=== PATIENT | female | born 1990 | race Caucasian/White ===

== ENCOUNTER 2017-01-12 13:15 | Observation (INO) ==
[2017-01-12] MEDS ORDERED: IOPAMIDOL 100 ML BOTTLE IV ONE (13:16)
--- NOTE | 2017-01-12 13:41 | Emergency Department Note ---
Abdominal Pain HPI - General Chief Complaint: Abdominal Pain Stated Complaint: abdominal pain Time Seen by Provider: 01/12/17 13:27 Source: patient Mode of arrival: ambulatory Limitations: no limitations - History of Present Illness HPI Narrative: Patient has had abdominal pain for last 2 days. It was initially between the umbilicus and epigastrium but now seems to be localized in the right lower quadrant. Also felt slightly in the back. She did have some nausea and vomiting yesterday. Also some fever. - Related Data Home Medications Medication Instructions Recorded Confirmed No Known Home Meds [No Known Home 01/12/17 01/12/17 Meds] Allergies Allergy/AdvReac Type Severity Reaction Status Date / Time No Known Drug Allergies Allergy Verified 01/12/17 13:18 Review of Systems Constitutional: Reports: fever Gastrointestinal: Reports: abdominal pain, nausea, vomiting Genitourinary: Denies: urgency Musculoskeletal: Reports: back pain Abdominal Pain PMH - Past Medical History Medical history: Reports: no medical history - Social History Smoking status: Never smoker Physical Exam Limitations: no limitations General appearance: alert Head: atraumatic Eye: Present: normal appearance ENT: normal exam Neck: Present: normal inspection Chest: Present: normal inspection Respiratory: Present: normal lung sounds bilaterally Cardiovascular: Present: regular rate, normal rhythm, normal heart sounds Abdominal: Present: soft, tenderness, guarding. Absent: distention, rebound, rigidity Abdominal tenderness: Present: RLQ, mild Neurological: Present: alert Psychiatric: Present: normal affect, normal mood Skin: Present: warm, dry, intact Course Vital Signs Temperature 98.0 F 01/12/17 13:15 Pulse Rate 86 01/12/17 13:15 Respiratory Rate 14 01/12/17 13:15 Blood Pressure 144/85 01/12/17 13:15 Pulse Oximetry (%) 100 01/12/17 13:15 Temperature 98.0 F 01/12/17 13:15 Pulse Rate 86 01/12/17 13:15 Respiratory Rate 14 01/12/17 13:15 Blood Pressure 144/85 01/12/17 13:15 Pulse Oximetry (%) 100 01/12/17 13:15 Abdominal Pain - MDM Narrative Medical decision making narrative: Patient has unruptured appendicitis and a 5.9 cm right ovarian cyst. Discuss case with Dr. Velazquez and the patient will be admitted to the hospital for appendicitis - Lab Data Lab results reviewed: Yes I reviewed the patient's lab results. Result diagrams: 01/12/17 13:38 01/12/17 13:38 Lab Results 01/12/17 01/12/17 01/12/17 Range/Units 13:38 13:38 13:52 WBC 7.4 (4.5-11.0) K/mcL RBC 5.01 (4.00-5.20) M/mcL Hgb 15.2 H (12.0-15.0) g/dL Hct 45.2 (36.0-48.0) % MCV 90.2 (80.0-100.0) fL MCH 30.3 (26.0-34.0) pg MCHC 33.5 (31.0-36.0) g/dL RDW 12.4 (11.5-14.5) % Plt Count 151 (140-440) K/mcL MPV 11.5 H (7.4-10.4) fL Gran % 61.1 (38.0-78.0) % Lymph % (Auto) 26.8 (15.5-49.0) % [place] % (Auto) 10.7 (1.0-12.0) % Eos % (Auto) 1.1 (0.0-7.0) % Baso % (Auto) 0.3 (0.0-2.0) % Gran # 4.5 (1.8-8.0) K/mcL Lymph # (Auto) 2.0 (1.5-4.8) K/mcL [place] # (Auto) 0.8 (0.1-0.9) K/mcL Eos # (Auto) 0.1 (0.0-0.7) K/mcL Baso # (Auto) 0 (0.0-0.3) K/mcL Sodium 140 (133-145) mmol/L Potassium 4.0 (3.3-5.1) mmol/L Chloride 102 (96-108) mmol/L Carbon Dioxide 23 (22-30) mmol/L Anion Gap 15.0 (8-16) BUN 12 (6-20) mg/dl Creatinine 0.9 (0.6-1.1) mg/dl GFR Calculation 88 Glucose 86 (70-105) mg/dL Calcium 9.7 (8.6-10.4) mg/dl Total Bilirubin 0.6 (0.0-1.0) mg/dL AST 14 (0-37) U/l ALT 10 (0-40) U/l Alkaline Phosphatase 52 (39-117) U/L Total Protein 8.0 (5.9-8.4) gm/dL Albumin 4.7 (3.2-5.2) gm/dL Globulin 3.3 (2.2-3.7) gm/dL Albumin/Globulin Ratio 1.4 (1.0-2.3) Lipase 12 (7-60) U/L Urine Color Yellow Urine Appearance Cloudy Urine pH 5.0 (5.0-9.0) Ur Specific [place] 1.028 (1.000-1.035) Urine Protein 30 A (NEG) mg/dL Urine Glucose (UA) Negative (NEG) mg/dL Urine Ketones 20 A (NEG) mg/dL Urine Occult Blood 0.2 A (<0.03) mg/dL Urine Nitrate Neg (NEG) Urine Bilirubin Neg (NEG) mg/dL Urine Urobilinogen Neg (NEG) mg/dL Ur Leukocyte Esterase 500 A (NEG) /uL Urine RBC 5 H (0-1) /hpf Urine WBC 140 H (0-4) /hpf Ur Squamous Epith Cells 15 H (0-4) /hpf Urine Bacteria 0 (0) /hpf Urine Mucus Many A (0) /hpf Ur Culture Indicated? No - Radiology Data Radiology results reviewed: Yes I reviewed the patient's radiology results. Disposition Pt seen by DRIVER GUIDE/PA only: No Clinical Impression: Acute appendicitis, Ovarian cyst Disposition: Xfer As Outpt/Obs ([facility]) Condition: Good Time of Disposition: 15:22
[2017-01-12] MEDS ORDERED: 0.9 % SODIUM CHLORIDE 1,000 ML IV ONE (13:50)
[2017-01-12 14:03] LABS: Basophils # (Auto) 0 K/mcL (0.0-0.3); Basophils % (Auto) 0.3 % (0.0-2.0); Eosinophils # (Auto) 0.1 K/mcL (0.0-0.7); Eosinophils % (Auto) 1.1 % (0.0-7.0); Granulocytes % (Auto) 61.1 % (38.0-78.0); Lymphocytes % (Auto) 26.8 % (15.5-49.0); Mean Cell Volume 90.2 fL (80.0-100.0); Mean Corpuscular HGB Conc 33.5 g/dL (31.0-36.0); Mean Corpuscular Hemoglobin 30.3 pg (26.0-34.0); Monocytes # (Auto) 0.8 K/mcL (0.1-0.9); Monocytes % (Auto) 10.7 % (1.0-12.0); Platelet Count 151 K/mcL (140-440); RBC 5.01 M/mcL (4.00-5.20); Red Cell Distribution Width 12.4 % (11.5-14.5)
[2017-01-12 14:26] LABS: ALT/SGPT 10 U/l (0-40); Albumin 4.7 gm/dL (3.2-5.2); Albumin/Globulin Ratio 1.4 (1.0-2.3); Alkaline Phosphatase 52 U/L (39-117); Blood Urea Nitrogen 12 mg/dl (6-20); Lipase 12 U/L (7-60)
[2017-01-12 14:44] LABS: Appearance,Urine CLOUDY; Bacteria,Urine 0 /hpf (0); Bilirubin,Urine NEG (NEG); Color,Urine YELLOW; Glucose,Urine (UA) NEGATIVE (NEG); Leukocyte Esterase,Urine 500 /uL (NEG); Mucus,Urine MANY /hpf (0); Nitrate,Urine NEG (NEG); Protein,Urine 30 mg/dL (NEG); Specific Gravity,Urine 1.028 (1.000-1.035); Urine Blood 0.2 mg/dL (<0.03); Urine RBC 5 /hpf (0-1); Urine Squamous Epithelial Cell 15 /hpf (0-4); Urine WBC 140 /hpf (0-4); Urobilinogen,Urine NEG (NEG)
--- NOTE | 2017-01-12 15:16 | Cat Scan Report ---
CLINICAL INFORMATION: Reason for Exam:r/o appy FINDINGS: The abdomen and pelvis are imaged without oral or IV contrast scanning from the diaphragm to the symphysis pubis. Sagittal and coronal reformats are created. The liver and spleen are normal in size and homogeneous. The gallbladder pancreas, adrenals and kidneys are normal. The aorta is normal in caliber. There is a thickened and inflamed appendix located along the medial side of the cecum and descending colon. It parallels the a sending colon and measures up to 1.1 cm in transverse diameter. The wall is inflamed but there is no fluid collection or abscess adjacent to it. Small bowel is nondilated. There is no evidence of diverticulosis. There is a large simple cyst in the right ovary which measures 5.6 x 5.8 x 5.9 cm. It has thin doyle. The uterus is anteverted and contains a well-positioned IUD. Left ovary is normal. IMPRESSION: Acute appendicitis Large right ovarian cyst Dr. Bernabe was called with results Interpreted and Authenticated by: Jorge A Yanes 01/12/17
[2017-01-12] MEDS ORDERED: PIPERACILLIN SODIUM/TAZOBACTAM 3.375 GM in DEXTROSE 5% IN WATER 50 ML IV ONE (15:20)
[2017-01-12] MEDS ORDERED: PIPERACILLIN SODIUM/TAZOBACTAM 3.375 GM VIAL IV ONE (15:33)
[2017-01-12] MEDS ORDERED: HYDROmorphone 2 MG/ML SYRINGE IV PRN (15:37)
[2017-01-12] MEDS ORDERED: PROMETHAZINE 25 MG/ML VIAL IV PRN (15:37)
[2017-01-12] MEDS ORDERED: ONDANSETRON 4 MG/2 ML VIAL IV PRN (15:37)
[2017-01-12] MEDS: 0.9 % SODIUM CHLORIDE 1,000 ML IV SCH ×2 (17:43→23:33)
--- NOTE | 2017-01-12 17:54 | General Surg History&Physical ---
History of Present Illness Patient information: Note initiated : 01/12/17 at 5:52 pm Service Date, if different from initiated Date: [] Patient: Yodit Chaves 26 y/o F admitted on 01/12/17 for abdominal pain. Chief Complaint: [] HPI: Ms. Chaves is a 26 year old F with a 2 day history of abdominal pain ,nausea,. Vomiting and fever she had initial onset of supraumbilical abdominal pain with fever elevation over 101. The pain was followed by multiple waves of nausea with recurrent vomiting. It localized to the right lower quadrant overnight and became more intense. She was seen in the emergency room and was noted to have leukocytosis. CT of the abdomen shows a thickened edematous and inflamed appendix compatible with acute appendicitis. Patient is admitted and will have urgent appendectomy. She is counseled for laparoscopic appendectomy. Past History Past medical history: No medical illness Past surgical history: Surgical procedure to remove excess bone growth left humerus age 14 Past family history: Father age 54 healthy without illness Sister age 21 healthy without illness Mother age 50 with hypertension and depression Past social history: Never smoker Occasional wine drinker Never drug use Medications and Allergies Home Medications Medication Instructions Recorded Confirmed Type No Known Home Meds [No Known Home 01/12/17 01/12/17 History Meds] Allergies Allergy/AdvReac Type Severity Reaction Status Date / Time No Known Drug Allergies Allergy Verified 01/12/17 13:18 Exam Temp Pulse Resp BP Pulse Ox 97.5 F 89 16 115/79 100 01/12/17 16:57 01/12/17 16:44 01/12/17 16:57 01/12/17 16:57 01/12/17 16:57 - General physical appearance well developed, well nourished, no distress - Eyes PERRL, normal ocular movement - ENT normal pinna, normal nares, normal mucosa, no hearing loss, no congestion - Head Head exam IM: Present: atraumatic, normocephalic - Neck no masses, no bruits, trachea midline, no lymphadectomy, no venous distension - Cardiovascular Cardiovascular exam IM: Present: normal rate and rhythm, RRR, +S1, +S2, systolic murmur (Grade 2-3 systolic ejection murmur). Absent: JVD Type of murmur IM: Present: systolic Intensity IM: 2/6 - Respiratory normal expansion, normal respiratory effort, clear to percussion, clear to auscultation - Abdomen Abdomen: Present: soft, tender, bowel sounds, distended (Mild abdominal distention with tenderness left lower quadrant; active bowel sounds; no mass) Hernia: Present: none - Genitourinary Present: normal external genitalia - Integumentary Present: no rash, no growths, no abnormal pigmentation - Neurologic Present: normal coordination, normal sensation - Musculoskeletal Present: normal gait, normal posture - Psychiatric Present: oriented to time, oriented to person, oriented to place, speech is normal, memory intact Assessment and Plan (1) Acute appendicitis Patient counseled for laparoscopic appendectomy which will be done in the morning. She has been started on Zosyn every 6 hours Status: Acute Qualifiers: Acute appendicitis type: with localized peritonitis Qualified Code(s): K35.3 - Acute appendicitis with localized peritonitis (2) Ovarian cyst Status: Acute
[2017-01-12 19:30] LABS: HCG,Serum NEGATIVE <10 (<10 mIU/ml)
[2017-01-12] MEDS: PIPERACILLIN SODIUM/TAZOBACTAM 3.375 GM in DEXTROSE 5% IN WATER 50 ML IV SCH (19:31)
[2017-01-13] MEDS: PIPERACILLIN SODIUM/TAZOBACTAM 3.375 GM in DEXTROSE 5% IN WATER 50 ML IV SCH ×4 (00:13→18:14)
[2017-01-13] MEDS: 0.9 % SODIUM CHLORIDE 1,000 ML IV SCH ×5 (02:35→22:11)
[2017-01-13 06:44] LABS: Basophils # (Auto) 0 K/mcL (0.0-0.3); Basophils % (Auto) 0.7 % (0.0-2.0); Eosinophils # (Auto) 0.1 K/mcL (0.0-0.7); Eosinophils % (Auto) 2.8 % (0.0-7.0); Granulocytes % (Auto) 46.4 % (38.0-78.0); Lymphocytes # (Auto) 2.1 K/mcL (1.5-4.8); Lymphocytes % (Auto) 39.8 % (15.5-49.0); Mean Cell Volume 90.3 fL (80.0-100.0); Mean Corpuscular HGB Conc 34.3 g/dL (31.0-36.0); Monocytes # (Auto) 0.5 K/mcL (0.1-0.9); Monocytes % (Auto) 10.3 % (1.0-12.0); Platelet Count 120 K/mcL (140-440); RBC 4.13 M/mcL (4.00-5.20); Red Cell Distribution Width 12.3 % (11.5-14.5)
[2017-01-13] MEDS ORDERED: NALOXONE HCL 0.4 MG/ML VIAL IV PRN (06:54)
[2017-01-13] MEDS ORDERED: FLUMAZENIL 0.1 MG/ML ML IV PRN (06:54)
[2017-01-13] MEDS ORDERED: LACTATED RINGERS 250 ML IV PRN (06:54)
[2017-01-13] MEDS ORDERED: IPRATROPIUM/ALBUTEROL 3 ML AMPUL.NEB NEB PRN (06:54)
[2017-01-13] MEDS ORDERED: PROMETHAZINE 25 MG/ML VIAL IV PRN ×2 (06:54→09:07)
[2017-01-13] MEDS ORDERED: ACETAMINOPHEN 1,000 MG/100 ML BOTTLE IV ONE (06:54)
[2017-01-13] MEDS ORDERED: ONDANSETRON 4 MG/2 ML VIAL IV PRN ×2 (06:54→09:07)
[2017-01-13] MEDS ORDERED: diphenhydrAMINE 50 MG/ML VIAL IV PRN (06:54)
[2017-01-13] MEDS ORDERED: LACTATED RINGERS 1,000 ML IV SCH (07:00)
[2017-01-13] MEDS ORDERED: LIDOCAINE HCL/PF 100 MG/5 ML SYRINGE IV ONE (07:05)
[2017-01-13] MEDS ORDERED: KETOROLAC 30 MG/ML VIAL IV ONE (07:05)
[2017-01-13] MEDS ORDERED: MIDAZOLAM 2 MG/2 ML VIAL IV ONE (07:05)
[2017-01-13] MEDS ORDERED: DEXAMETHASONE 10 MG/ML VIAL IV ONE (07:05)
[2017-01-13] MEDS ORDERED: PROPOFOL 200 MG/20 ML VIAL IV ONE (07:05)
[2017-01-13] MEDS ORDERED: ONDANSETRON 4 MG/2 ML VIAL IV ONE (07:05)
[2017-01-13] MEDS ORDERED: fentaNYL 100 MCG/2 ML VIAL IV ONE (07:05)
[2017-01-13] MEDS ORDERED: NEOSTIGMINE 1 MG/ML VIAL IV ONE (07:05)
[2017-01-13] MEDS ORDERED: ROCURONIUM 10 MG/ML ML IV ONE (07:05)
[2017-01-13] MEDS ORDERED: GLYCOPYRROLATE 0.2 MG/ML VIAL IV ONE (07:05)
--- NOTE | 2017-01-13 07:52 | Brief Operative Note ---
Date of procedure: 01/13/17 Pre-op diagnosis: acute appendicitis Post-op diagnosis: other (acute appendicitis) Procedure: laparoscopic appendectomy Grafts/Implants: No Anesthesia: GETA Findings: acute suppurative appendicitis Complications: none Surgeon: Stephanie Velazquez Estimated blood loss (cc): 5 Specimens Removed/Pathology: other (appendix) Condition: stable Disposition: PACU
[2017-01-13] MEDS: fentaNYL 100 MCG/2 ML VIAL IV PRN ×4 (08:23→08:38)
[2017-01-13] MEDS: MEPERIDINE 25 MG/ML SYRINGE IV PRN ×2 (08:48→08:52)
[2017-01-13] MEDS ORDERED: 0.9 % SODIUM CHLORIDE 1,000 ML IV SCH (09:07)
[2017-01-13] MEDS ORDERED: ACETAMINOPHEN 1,000 MG/100 ML BOTTLE IV PRN (09:07)
[2017-01-13] MEDS: HYDROmorphone 2 MG/ML SYRINGE IV PRN ×2 (09:22→15:24)
[2017-01-13] MEDS ORDERED: LORazepam 2 MG/ML VIAL IV PRN ×2 (11:42→15:43)
[2017-01-13] MEDS ORDERED: LORazepam 2 MG/ML VIAL ONE (15:54)
[2017-01-14] MEDS: PIPERACILLIN SODIUM/TAZOBACTAM 3.375 GM in DEXTROSE 5% IN WATER 50 ML IV SCH ×3 (00:09→12:03)
[2017-01-14] MEDS: HYDROmorphone 2 MG/ML SYRINGE IV PRN ×2 (04:48→09:14)
[2017-01-14 06:24] LABS: ALT/SGPT 15 U/l (0-40); Albumin 3.4 gm/dL (3.2-5.2); Albumin/Globulin Ratio 1.4 (1.0-2.3); Alkaline Phosphatase 50 U/L (39-117); Bilirubin,Direct < 0.2 mg/dL (0.0-0.3); Blood Urea Nitrogen 7 mg/dl (6-20); Gamma Glutamyl Transpeptidase 16 U/L (5-36); Uric Acid 1.5 mg/dL (2.5-8.0)
[2017-01-14] MEDS: oxyCODONE/APAP 5/325MG TABLET PO PRN ×3 (06:34→11:30)
[2017-01-14] MEDS: 0.9 % SODIUM CHLORIDE 1,000 ML IV SCH ×2 (09:14→14:10)
--- NOTE | 2017-01-14 13:37 | Discharge Summary ---
Providers - Providers Patient information: Note initiated : 01/14/17 at 1:35 pm Service Date, if different from initiated Date: [] Patient: Yodit Chaves 26 y/o F admitted on 01/12/17 for abdominal pain. Chief Complaint: [] Date of admission: 01/12/17 Discharge date: 01/14/17 Attending physician: Stephanie Velazquez Hospitalization Hospital course: 26-year-old female admitted with signs and symptoms of acute appendicitis. She had leukocytosis and CT evidence of an inflamed dilated appendix she was admitted and underwent laparoscopic cholecystectomy on yesterday. She had acute suppurative appendicitis. Her surgery was uneventful. She had a tremendous amount of anxiety and panic disorder which was treated with supplemental IV Ativan. She has done well otherwise and is now stable for discharge home. She is given a prescription for Ativan to use until she can see her primary physician. She is advised to have follow-up in the office for staple removal in 2 weeks. Discharge diagnosis: Acute appendicitis Secondary discharge diagnosis: Acute anxiety with panic disorder Reason for admission: Acute appendicitis Procedures: Laparoscopic appendectomy Complications: None Exam Temp Pulse Resp BP Pulse Ox 98.1 F 88 16 106/62 98 01/14/17 11:48 01/14/17 04:00 01/14/17 11:48 01/14/17 11:48 01/14/17 11:48 - General physical appearance well developed, well nourished, no distress - Eyes PERRL, normal ocular movement - ENT normal pinna, normal nares, normal mucosa, no hearing loss, no congestion - Head Head exam IM: Present: atraumatic, normocephalic - Neck no masses, no bruits, trachea midline, no lymphadectomy, no venous distension - Cardiovascular Cardiovascular exam IM: Present: normal rate and rhythm, RRR, +S1, systolic murmur. Absent: JVD Intensity IM: 2/6 - Respiratory normal expansion, normal respiratory effort, clear to percussion, clear to auscultation - Abdomen Abdomen: Present: soft, tender (Mild abdominal distention with active bowel sounds; incisions are unremarkable), bowel sounds, surgical scars, distended Hernia: Present: none - Integumentary Present: no rash, no growths, no abnormal pigmentation - Neurologic Present: normal coordination, normal sensation - Musculoskeletal Present: normal gait, normal posture - Psychiatric Present: oriented to time, oriented to person, oriented to place, speech is normal, memory intact Discharge Plan - Patient/Caregiver Discharge Instructions Activity: increase activity as tolerated Diet: Regular Diet Prescriptions: LORazepam [Ativan] 0.5 mg PO Q6HP PRN #60 tablet PRN Reason: Anxiety oxyCODONE HCL/ACETAMINOPHEN [Endocet 10-325 mg Tablet] 1 tab PO Q4H PRN #30 tablet PRN Reason: Pain Promethazine [Phenergan] 25 mg PO Q4HP PRN #30 tablet PRN Reason: Nausea - Follow up Plan Disposition: Home, Self-Care Prognosis: Good Rehab Potential: Good I certify that the patient requires SNF services.: No Overall status at discharge: patient is not back to baseline Pending Studies Diet Regular Diet Start SunJan 14 0550 Hydromorphone HCl (Dilaudid) 1 mg IV Q2HP PRN PRN Reason: PAIN LEVEL > 6 Last Admin: 01/14/17 09:14 Dose: 1 mg Admin: 01/14/17 04:48 Dose: 1 mg Admin: 01/13/17 15:24 Dose: 1 mg Admin: 01/13/17 09:22 Dose: 1 mg Piperacillin Sod/Tazobactam (Sod 3.375 gm/ Dextrose) 50 mls @ 100 mls/hr IV Q6H [facility] Last Admin: 01/14/17 12:03 Dose: 100 mls/hr Infusion: 01/14/17 06:38 Dose: 100 mls/hr Admin: 01/14/17 06:08 Dose: 100 mls/hr Infusion: 01/14/17 00:39 Dose: 100 mls/hr Admin: 01/14/17 00:09 Dose: 100 mls/hr Infusion: 01/13/17 18:44 Dose: 100 mls/hr Admin: 01/13/17 18:14 Dose: 100 mls/hr Infusion: 01/13/17 12:28 Dose: 100 mls/hr Admin: 01/13/17 11:58 Dose: 100 mls/hr Sodium Chloride (Sodium Chloride 0.9%) 1,000 mls @ 75 mls/hr IV .[id number] [facility] Last Admin: 01/14/17 09:14 Dose: 75 mls/hr Infusion: 01/14/17 07:34 Dose: 75 mls/hr Admin: 01/13/17 22:11 Dose: Not Given Admin: 01/13/17 18:14 Dose: 75 mls/hr Admin: 01/13/17 11:06 Dose: Not Given Acetaminophen (Ofirmev) 1,000 mg in 100 mls @ 200 mls/hr IV Q6HP PRN PRN Reason: Pain Last Admin: 01/13/17 22:10 Dose: 200 mls/hr Lorazepam (Ativan) 0.5 mg IV Q4HP PRN PRN Reason: ANXIETY/SEDATION Last Admin: 01/14/17 05:08 Dose: 0.5 mg Ondansetron HCl (Zofran) 4 mg IV Q4HP PRN PRN Reason: Nausea Last Admin: 01/13/17 15:24 Dose: 4 mg Oxycodone/Acetaminophen (Percocet 5-325 Mg) 2 tab PO Q4HP PRN PRN Reason: PAIN LEVEL 3-6 Last Admin: 01/14/17 10:38 Dose: 2 tab Admin: 01/14/17 06:34 Dose: 2 tab Promethazine HCl (Phenergan) 12.5 mg IV Q4HP PRN PRN Reason: Nausea And Vomiting Last Admin: 01/13/17 18:14 Dose: 12.5 mg Shift Summary 01/14/17 05:39 Shift Summary by Kailyn Jackson&Ox4. VSS. 3 surgical incisions to abdomen with isidoro and Tegaderm in place; no drainage. 18 gauge to left hand with NS at 75 ml/hr. Up independently in room ; SBA while ambulating in hallway. Patient voided 2,100 ml this shift. Placed on full liquid diet with note to advance as tolerated. Patient denied any N/V this shift. Advanced to regular diet and is tolerating it well at this time. Rcv 'd Ofirmev at 2210 for 4/10 pain. Patient became increasingly anxious this morning; administered Ativan 0.5mg IV. Rcv'd Dilaudid 1mg IV for 8/10 pain to shoulders and neck at 0448. Will update at bedside. Initialized on 01/14/17 05:39 - END OF NOTE
--- NOTE | 2017-01-15 13:40 | Surgical Pathology Report ---
HISTOLOGY SPECIMEN MICROSCOPIC DIAGNOSIS APPENDIX, APPENDECTOMY: -- ACUTE APPENDICITIS WITH ACUTE SEROSITIS. (RLF:djf) PROCEDURAL IMPRESSION Acute appendicitis. GROSS DESCRIPTION Received in formalin labeled appendix, is a dutta-pink appendix measuring 4.2 cm in length by 0.9-1 cm in diameter. There is attached yellow-dutta fatty tissue with areas of hemorrhage. The proximal margin is inked black. No surface exudate or perforation is identified. Sectioning through reveals wall thickness of 0.2-0.3 cm with fecal mucoid material. Pmp sections submitted in one cassette. (RLF:adj) Electronically Signed by: Yenni Leahy M.D.
--- NOTE | 2017-02-06 10:46 | Operative Note ---
DATE OF OPERATION: 01/13/2017 PREOPERATIVE DIAGNOSIS: Acute appendicitis. POSTOPERATIVE DIAGNOSIS: Acute appendicitis, right ovarian simple cyst. PROCEDURE: Laparoscopic appendectomy and rupture of simple ovarian cyst with drainage. SURGEON: Stephanie Velazquez MD FINDINGS: Acute suppurative appendicitis and ovarian cyst. DESCRIPTION OF PROCEDURE: Under general anesthesia, the patient's abdomen was prepped and draped in a sterile field. A supraumbilical incision was made. Veress needle was inserted uneventfully. Abdomen was insufflated with 3 liters of CO2. A 12 mm port was placed uneventfully. Laparoscope was placed. The patient was placed in deep Trendelenburg position. Under videoscopic guidance, a 5 mm port was placed in the suprapubic midline with a 12 mm port in the left lower quadrant. Inspection of the pelvis revealed a large corpus luteal cyst with a very thin wall on the right. There was acute suppurative appendicitis with more inflammation in the tip. The appendix was grasped and a window was made in the mesoappendix at the base. The base of the appendix was transected using an Endo-ISELA stapler. The mesoappendix was transected using Endo-ISELA stapler. The ovarian cyst was grasped and using electrocautery a large window was made in the wall of the cyst in the thinnest area. Suction of the cystic fluid was carried out. The transected wall was then cauterized. There was essentially no bleeding. The appendiceal stump was evaluated and was unremarkable. CO2 was allowed to escape from the abdomen and the port removed. Fascia at the umbilicus was closed with 0 Vicryl. The skin incisions were closed with isidoro. The patient tolerated the procedure well. She was awakened. Dressings were placed. She was transferred to bed and taken to the postanesthetic care unit in stable satisfactory condition. LCS:kevan Job ID: [id number] Doc ID: [id number] Stephanie Velazquez M.D.
== END 2017-01-14 15:32 | disposition home or self-care (01) ==
LOC: MEDSUR 13:15 → ED 13:15 → MEDSUR 16:44
PROVIDERS: ADMIT Family Medicine Adult Medicine; ATTEND Family Medicine Adult Medicine
PROC: LAPAPPY (ICD-10-PCS; 2017-01-13 07:03)